=== PATIENT | female | born 1955 | race African-American/Black ===

== ENCOUNTER → 2017-03-28 | Day surgery (SDC) | payer OTHER ==
[~2017-03-28] MED LIST: BASAGLAR K100 UNIT/1; BAYER CHEWABLE81 MG PO; FLONASE 0.05% N16 G1; GABAPENTIN600 MG PO; HUMALOG KW100 UNIT/1; INVOKANA300 MG PO; JANUVIA PO; LIPITOR20 MG PO; OMEPRAZOLE20 M2 PO; PRINIVIL5 MG PO; XODOL 7.5-3001 EACH PO; ZANAFLEX4 M1 PO
--- NOTE | ~2017-03-28 | OR ---
Unit #: [id number] #: [id number] Patient: CEZAR STANTON [id number] [address] [address] [id number] O MR#: [id number] NAME: CEZAR STANTON ROOM: Date of Procedure: 03/28/2017 Admission Date: 03/28/2017 Surgeon: To Ocasio M.D. : 1955 Attending Physician: To Ocasio M.D. OPERATIVE REPORT PROCEDURE PERFORMED Colonoscopy with snare polypectomy. INDICATIONS FOR PROCEDURE A 61-year-old female with average risk for colorectal cancer. MEDICATIONS Monitored anesthesia. POSTOPERATIVE FINDINGS 1. Polyp 6 mm, ascending colon, snared sent for histopathology. 2. Polyp, transverse colon, 6 mm, snared sent for histopathology. 3. Good prep. 4. Rest of the exam was normal. 5. Internal hemorrhoids. PLAN 1. Follow up on pathology report. 2. Colonoscopy in 5 years. DESCRIPTION OF PROCEDURE The patient was explained of the procedure, risks, and benefits along with risks and benefits of anesthesia. She was brought to the endoscopy room. Propofol anesthesia was given. Rectal exam was done, which was normal. Colonoscope was lubricated, passed up the rectum, advanced under direct vision all the way to the cecum. Cecum was identified by ileocecal valve and appendiceal orifice. I then started to pull the scope out carefully looking. Polyp seen as described. I retroflexed in the rectum, small hemorrhoids seen. Scope was gently pulled out. She tolerated it well. Dictated by... Nehal Bowling/shital TD: 03/28/2017 23:20 JOB #: [id number] Unit #: [id number] #: [id number] Patient: CEZAR STANTON OPERATIVE REPORT Page 1 of 1 X To Ocasio MD PROCEDURE OPERATIVE NOTE
== END | disposition home or self-care (01) ==
LOC: COPS 01-11 09:30
PROVIDERS: Internal Medicine
PROC: 0DBK8ZX Excision of Ascending Colon, Via Natural or Artificial Opening Endoscopic, Diagnostic (ICD-10-PCS; principal; 2017-03-28 10:30)
PROC: 0DBL8ZX Excision of Transverse Colon, Via Natural or Artificial Opening Endoscopic, Diagnostic (ICD-10-PCS; 2017-03-28 10:30)
DX: Z12.11 Encounter for screening for malignant neoplasm of colon (principal); D12.2 Benign neoplasm of ascending colon; D12.3 Benign neoplasm of transverse colon; K64.8 Other hemorrhoids; K21.9 Gastro-esophageal reflux disease without esophagitis; E11.9 Type 2 diabetes mellitus without complications; Z79.4 Long term (current) use of insulin; I10 Essential (primary) hypertension; F17.200 Nicotine dependence, unspecified, uncomplicated; M19.90 Unspecified osteoarthritis, unspecified site; Z79.899 Other long term (current) drug therapy; Z90.710 Acquired absence of both cervix and uterus; Z90.49 Acquired absence of other specified parts of digestive tract
CPT/HCPCS: 82947; 88305